=== PATIENT | male | born 1955 | race Caucasian/White ===

== ENCOUNTER 2022-10-03 12:06 | Inpatient (IN) | payer OTHER, MEDICAID ==
[~2022-10-03] VITALS: Ht 167.6 cm; Wt 60.7 kg
[2022-10-03] MEDS ORDERED: PANT40TA2 PO (12:37)
[2022-10-03 13:30] LABS: Basophils # (auto) 0 10 ^3/uL (0-0.2); Basophils % (auto) 0.5 % (0.0-2.0); Eosinophils # (auto) 0.2 10 ^3/uL (0-0.8); Eosinophils % (auto) 2.8 % (0.0-7.0); Hematocrit 39.6 % (41.0-53.0); Hemoglobin 13.6 g/dL (13.5-17.5); Lymphocytes # (auto) 1.2 10 ^3/uL (0.4-5.4); Lymphocytes % (auto) 16.3 % (10.0-50.0); Mean Corpuscular Hemoglobin 32.4 pg (28.0-32.0); Mean Corpuscular Hgb Conc. 34.4 g/dL (32.0-36.0); Mean Corpuscular Volume 94.2 fL (80.0-100.0); Monocytes # (auto) 0.5 10 ^3/uL (0-1.3); Monocytes % (auto) 6.8 % (0.0-12.0); Neutrophils # (auto) 5.5 10 ^3/uL (1.6-8.6); Neutrophils % (auto) 73.6 % (37.0-80.0); Nucleated Red Blood Cells % 0.1 %; White Blood Cell 7.5 10^3/uL (4.4-10.8)
[2022-10-03 14:02] LABS: Urine Bacteria NONE SEEN /hpf (None Seen); Urine Blood Negative /uL (Negative); Urine Specific Gravity 1.018 (1.001-1.035); Urine WBC <1 /hpf (0 - 3)
[2022-10-03 14:08] LABS: Albumin 3.5 g/dL (3.4-5.0); Calcium 9.4 mg/dL (8.5-10.1)
[2022-10-03 14:11] LABS: Bilirubin, Total 0.2 mg/dL (0.2-1.0); Total Protein 6.9 g/dL (6.4-8.2)
[2022-10-03] MEDS ORDERED: ONDANSETRON HCL 4 MG/2 ML VIAL IV ONE ×2 (19:00→21:45)
[2022-10-03] MEDS ORDERED: MORPHINE SULFATE 4 MG/ML SYR/VIAL IV ONE (19:00)
[2022-10-03] MEDS ORDERED: BENZOCAINE (DENTAL) 20 % SPRAY 60ML MT ONE ×2 (19:01→21:45)
[2022-10-03] MEDS ORDERED: HYDROmorphone HCL 2 MG/ML VL/or syr IV ONE (21:45)
[2022-10-04] MEDS ORDERED: HYDROmorphone HCL 2 MG/ML VL/or syr IV ONE ×5 (03:15→15:30)
[2022-10-04] MEDS ORDERED: ONDANSETRON HCL 4 MG/2 ML VIAL IV ONE (07:00)
[2022-10-04] MEDS ORDERED: PANTOPRAZOLE 40mg/50ML NS AE 50 ML IV ONE (11:00)
[2022-10-04] MEDS: PANTOPRAZOLE 40mg/50ML NS AE 50 ML IV SCH ×2 (14:12→19:07)
[2022-10-04] MEDS ORDERED: HYDROmorphone HCL 2 MG/ML VL/or syr IV PRN (18:00)
[2022-10-04] MEDS ORDERED: ONDANSETRON HCL 4 MG/2 ML VIAL IV PRN (18:15)
[2022-10-04 18:27] LABS: Basophils # (auto) 0 10 ^3/uL (0-0.2); Basophils % (auto) 0.4 % (0.0-2.0); Eosinophils # (auto) 0.3 10 ^3/uL (0-0.8); Eosinophils % (auto) 3.9 % (0.0-7.0); Hematocrit 39.4 % (41.0-53.0); Hemoglobin 13.2 g/dL (13.5-17.5); Lymphocytes # (auto) 1.3 10 ^3/uL (0.4-5.4); Mean Corpuscular Hemoglobin 31.9 pg (28.0-32.0); Mean Corpuscular Hgb Conc. 33.4 g/dL (32.0-36.0); Mean Corpuscular Volume 95.4 fL (80.0-100.0); Monocytes # (auto) 0.6 10 ^3/uL (0-1.3); Neutrophils # (auto) 4.6 10 ^3/uL (1.6-8.6); Neutrophils % (auto) 67.7 % (37.0-80.0); Nucleated Red Blood Cells % 0.1 %; Red Blood Cells 4.13 10^6/uL (4.5-5.90); White Blood Cell 6.7 10^3/uL (4.4-10.8)
[2022-10-04] MEDS ORDERED: cefTRIAXone 1GM/50ML D5W 50 ML IV SCH (18:39)
[2022-10-04 18:45] LABS: Anion Gap 8 (5-15); BUN/Creatinine Ratio 12.4; Blood Urea Nitrogen 26 mg/dL (7-18); Calcium 8.6 mg/dL (8.5-10.1); Carbon Dioxide 26 mmol/L (21-32); Chloride 107 mmol/L (98-107); GFR African American 41 mL/min; GFR Non-African American 34 mL/min; Glucose 77 mg/dL (74-106); Potassium 3.9 mmol/L (3.5-5.1); Sodium 141 mmol/L (136-145)
[2022-10-04 19:00] LABS: INR 1.03 (0.9-1.15); Partial Thromboplastin Time 30.8 sec (24.6-33.4)
[2022-10-04] MEDS: LACTATED RINGER'S 1,000 ML IV SCH (19:07)
[2022-10-04] MEDS: HYDROmorphone HCL 2 MG/ML VL/or syr IV PRN ×2 (19:08→23:33)
[2022-10-04] MEDS: metroNIDAZOLE 500MG/100ML 100 ML IV SCH (22:29)
[2022-10-04 23:36] VITALS: BP 140/71
[2022-10-05] MEDS: PANTOPRAZOLE 40mg/50ML NS AE 50 ML IV SCH ×2 (00:27→05:45)
[2022-10-05] MEDS ORDERED: HYDR12.56 PO (01:59)
[2022-10-05] MEDS ORDERED: SUCR1TAB PO (01:59)
[2022-10-05] MEDS ORDERED: DIAZ5TAB3 PO (01:59)
[2022-10-05] MEDS ORDERED: LOSA-69 PO (01:59)
[2022-10-05] MEDS: HYDROmorphone HCL 2 MG/ML VL/or syr IV PRN ×2 (04:47→08:41)
[2022-10-05 05:00] VITALS: BP 159/88
[2022-10-05] MEDS: metroNIDAZOLE 500MG/100ML 100 ML IV SCH (05:45)
[2022-10-05] MEDS: LACTATED RINGER'S 1,000 ML IV SCH (05:46)
[2022-10-05 06:33] LABS: Basophils # (auto) 0 10 ^3/uL (0-0.2); Basophils % (auto) 0.5 % (0.0-2.0); Eosinophils # (auto) 0.3 10 ^3/uL (0-0.8); Hematocrit 37.7 % (41.0-53.0); Hemoglobin 12.4 g/dL (13.5-17.5); Lymphocytes # (auto) 1.4 10 ^3/uL (0.4-5.4); Lymphocytes % (auto) 18.6 % (10.0-50.0); Mean Corpuscular Hemoglobin 31.5 pg (28.0-32.0); Mean Corpuscular Hgb Conc. 32.8 g/dL (32.0-36.0); Monocytes # (auto) 0.7 10 ^3/uL (0-1.3); Monocytes % (auto) 9.1 % (0.0-12.0); Neutrophils % (auto) 67.8 % (37.0-80.0); Nucleated Red Blood Cells % 0.1 %; Red Blood Cells 3.92 10^6/uL (4.5-5.90); Red Cell Distribution Width 13.1 % (11.8-14.3); White Blood Cell 7.3 10^3/uL (4.4-10.8)
[2022-10-05 06:47] LABS: BUN/Creatinine Ratio 13.7; Calcium 9.1 mg/dL (8.5-10.1); Potassium 3.8 mmol/L (3.5-5.1)
[2022-10-05 09:00] VITALS: BP 146/72
[2022-10-05] MEDS ORDERED: PANTOPRAZOLE 40 MG/10 ML VIAL INJ IV SCH ×2 (10:00→22:00)
[2022-10-05] MEDS ORDERED: HYDROmorphone HCL 2 MG/ML VL/or syr IV PRN ×2 (12:15)
[2022-10-05 13:02] VITALS: BP 165/91
== END 2022-10-05 14:00 | disposition left against medical advice (07) | DRG 389 ==
LOC: ER 12:06 → OVERFLOW 10-04 18:12 → WEST WING 10-04 23:10
PROVIDERS: ADMIT Registered Nurse; ATTEND Internal Medicine
PROC: 0D9670Z Drainage of Stomach with Drainage Device, Via Natural or Artificial Opening (ICD-10-PCS; principal; 2022-10-05)
DX: K56.609 Unspecified intestinal obstruction, unspecified as to partial versus complete obstruction (principal); C18.9 Malignant neoplasm of colon, unspecified; N13.30 Unspecified hydronephrosis; C78.00 Secondary malignant neoplasm of unspecified lung; C78.7 Secondary malignant neoplasm of liver and intrahepatic bile duct; Z20.822 Contact with and (suspected) exposure to COVID-19; Z53.29 Procedure and treatment not carried out because of patient's decision for other reasons; F17.210 Nicotine dependence, cigarettes, uncomplicated; I10 Essential (primary) hypertension; Z82.49 Family history of ischemic heart disease and other diseases of the circulatory system; Z82.5 Family history of asthma and other chronic lower respiratory diseases
CPT/HCPCS: 36415; 71045; 74018; 74176; 80048; 80053; 81001; 83690; 84484; 85025; 85610; 85730; 87426; 96365; 96366; 96367; 96375; 96376; G0378; J0696; J2405; J3490